=== PATIENT | male | born 1960 | race Caucasian/White ===

== ENCOUNTER 2016-09-19 07:59 | Emergency (ER) | payer SELFPAY ==
[~2016-09-19] VITALS: Ht 185.4 cm; Wt 127.0 kg
[~2016-09-19 07:59] MED LIST: DAYPRO600 M1 PO; HYDROCODONE BIT1 T11 PO; KEFLEX500 MG PO; LOTRISONE 0.05%1 CRE TP; MEDROL DOSEPAK4 MG PO; PREDNICOT20 MG PO; VICODIN 500 MG-1 TAB PO
[2016-09-19] MEDS ORDERED: ENALAPRIL20 MG PO (08:04)
[2016-09-19] MEDS ORDERED: NORVASC5 MG PO (08:04)
[2016-09-19] MEDS ORDERED: NEXIUM40 MG PO (08:05)
[2016-09-19 09:28] LABS: BASO # 0.1 10*3/uL (0.0-0.1); BASO % 0.8 % (0.0-1.0); EOS # 0.4 10*3/uL (0.0-0.4); HEMATOCRIT 44.5 % (42.0-52.0); IG # 0.1 10*3/uL (0.0-0.1); LYMPH # 1.4 10*3/uL (1.3-4.4); LYMPH % 15.6 % (27.0-41.0); MEAN CELL VOLUME 87.6 fl (80.0-94.0); MEAN CORPUSCULAR HGB 29.5 pg (27.0-31.0); MEAN CORPUSCULAR HGB CONC 33.7 g/dl (33.0-37.0); MEAN PLATELET VOLUME 9.4 fl (9.6-12.3); MONO # 0.9 10*3/uL (0.1-1.0); MONO % 10.1 % (3.0-9.0); NEUT % 67.8 % (47.0-73.0); PLATELET COUNT AUTOMATED 217 10*3/uL (130-400); RED BLOOD COUNT 5.08 10*6/uL (4.50-5.90); RED CELL DISTRI WIDTH 12.9 % (0-14.5); WHITE BLOOD COUNT 8.8 10*3/uL (4.8-10.8)
[2016-09-19 09:35] LABS: PROTHROMBIN TIME 10.4 SECONDS (9.0-12.4)
[2016-09-19 09:42] LABS: ALBUMIN 3.5 gm/dl (3.1-4.5); ALKALINE PHOSPHATASE 97 U/L (45-117); BILIRUBIN, TOTAL 0.3 mg/dl (0.2-1.0); BUN 13 mg/dl (7-24); C-REACTIVE PROTEIN 2.68 MG/DL (0-0.3); CARBON DIOXIDE 26 mmol/L (21-32); CHLORIDE 105 mmol/L (98-107); CKMB 1.5 ng/ml (0.5-3.6); CPK 116 U/L (39-308); EST GLOM FILT AFRICAN AMERICAN > 60 ml/min; GLUCOSE 113 mg/dL (65-99); POTASSIUM 4.1 mmol/L (3.5-5.1); SGOT/AST 15 IU/L (3-35); SGPT/ALT 21 U/L (12-78); SODIUM 139 mmol/L (136-145); TOTAL PROTEIN 8.2 gm/dL (6.4-8.2)
[2016-09-19 09:44] LABS: HEMOGLOBIN A1c 6.5 % (4.8-5.6)
[2016-09-19 09:46] LABS: TROPONIN I < 0.015 ng/ml (<0.045)
[2016-09-19] MEDS ORDERED: CIPRO500 MG PO (11:19)
== END 2016-09-19 11:41 | disposition home or self-care (01) ==
LOC: ED 07:59
PROVIDERS: Emergency Medicine
DX: S91.331A Puncture wound without foreign body, right foot, initial encounter (principal); L03.115 Cellulitis of right lower limb; G62.9 Polyneuropathy, unspecified; F17.200 Nicotine dependence, unspecified, uncomplicated; J45.909 Unspecified asthma, uncomplicated; J44.9 Chronic obstructive pulmonary disease, unspecified; I10 Essential (primary) hypertension; X58.XXXA Exposure to other specified factors, initial encounter; Y93.89 Activity, other specified; Y92.9 Unspecified place or not applicable; Y99.9 Unspecified external cause status

== ENCOUNTER → 2016-09-30 | Outpatient (CLI) | payer OTHER ==
[~2016-09-30] MED LIST changes: +CIPRO500 MG PO; +ENALAPRIL20 MG PO; +NEXIUM40 MG PO; +NORVASC5 MG PO
== END ==
LOC: WOUNDCARE 01:27
DX: S91.331D Puncture wound without foreign body, right foot, subsequent encounter (principal); G62.9 Polyneuropathy, unspecified; L84 Corns and callosities; J44.9 Chronic obstructive pulmonary disease, unspecified; F17.210 Nicotine dependence, cigarettes, uncomplicated

== ENCOUNTER → 2016-10-08 | Outpatient (CLI) | payer OTHER | END | disposition home or self-care (01) | LOC: US 04:14 | DX: I74.5 Embolism and thrombosis of iliac artery (principal); I10 Essential (primary) hypertension; S91.331D Puncture wound without foreign body, right foot, subsequent encounter; X58.XXXD Exposure to other specified factors, subsequent encounter ==

== ENCOUNTER → 2016-10-15 | Outpatient (CLI) | payer SELFPAY | LOC: WOUNDCARE 02:50 | DX: L97.511 Non-pressure chronic ulcer of other part of right foot limited to breakdown of skin (principal); G62.9 Polyneuropathy, unspecified; L84 Corns and callosities; I73.9 Peripheral vascular disease, unspecified; F17.210 Nicotine dependence, cigarettes, uncomplicated ==

== ENCOUNTER → 2016-10-22 | Outpatient (CLI) | payer SELFPAY | END | disposition home or self-care (01) | LOC: NM 03:08 → WOUNDCARE 03:08 | DX: L97.519 Non-pressure chronic ulcer of other part of right foot with unspecified severity (principal); S91.331A Puncture wound without foreign body, right foot, initial encounter; B96.89 Other specified bacterial agents as the cause of diseases classified elsewhere; X58.XXXA Exposure to other specified factors, initial encounter; Y93.89 Activity, other specified; Y92.89 Other specified places as the place of occurrence of the external cause; Y99.8 Other external cause status ==

== ENCOUNTER → 2016-11-05 | Outpatient (CLI) | payer SELFPAY ==
--- NOTE | ~2016-11-05 | PR ---
[place], [place] PROGRESS NOTE NAME: ALMA ROSA HOLDER SR [facility] #: [id number] UNIT #: [id number] ROOM: DOCTOR: IBIS CortesALEXIA BIRTHDATE: [birth year] DOS: 11/05/2016 SUBJECTIVE: The patient comes in for a wound care followup visit. CHIEF COMPLAINT: Followup of wound of the right foot. HISTORY OF PRESENT ILLNESS: This is a 55-year-old male with neuropathy, who has been coming to the Wound Clinic for 5 weeks now. He initially stepped on a screw and had not been aware of it and had been walking around with this foreign object in his boot for at least 4 days without realizing and he has been coming to the Wound Clinic for 5 weeks now with a fairly stalled wound. Last time he was here, a bone scan was ordered and was negative for osteomyelitis. He has completed a course of ampicillin for Strep agalactiae in the wound. He comes in today without any new complaints. We did give him a postop shoe with trying to offload the area, but he said it really caused problems with this knee, so he did not use it, he is back to his tennis shoes now. No fevers or chills. He has finished with his antibiotics. He does report that he developed a rash from the antibiotics on his legs. There is a very minimal drainage. No pain, fevers or chills. OBJECTIVE: VITAL SIGNS: Stable. Blood pressure 144/88, pulse 78, respirations 18, temperature 98.6. The wound is measuring 0.5 x 0.5 x 0.5, essentially the same as last week. There is a fairly thick callus around it. It looks clean. There is no purulence, tenderness or cellulitis. A debridement was done today. The tissue removed was devitalized, hyperkeratotic callus as well as subcutaneous tissue and there was moderate bleeding that was controlled with pressure. The post debridement measurements are 0.6 x 0.6 x 0.5. The patient tolerated the debridement well. Instruments used were forceps, scissors, a curette and a scalpel. Cetacaine spray was used for topical anesthesia. 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 He does have neuropathy and I would like to try the total contact cast to see if that would help offload the area more. There is no sign of infection and we will have the patient come on Thursday for a cast placement and then come back following Thursday for a cast change. So followup early next week for total contact cast. The patient thinks he will be able to tolerate it. I did explain that if it causes any knee problems, that he should let us know, we remove the cast right away. [place], [place] PROGRESS NOTE NAME: ALMA ROSA HOLDER SR UNIT #: [id number] ROOM: DOCTOR: ALEXIA BAUMANN M.D. BIRTHDATE: [birth year] ALEXIA BAUMANN MD CM:PNTRANS 9 3 ALEXIA BAUMANN M.D. 11/05/16923 interface
== END ==
LOC: WOUNDCARE 04:14
DX: L97.512 Non-pressure chronic ulcer of other part of right foot with fat layer exposed (principal); L84 Corns and callosities; G62.9 Polyneuropathy, unspecified

== ENCOUNTER → 2016-11-10 | Outpatient (CLI) | payer SELFPAY ==
--- NOTE | ~2016-11-10 | PR ---
[place], [place] PROGRESS NOTE NAME: ALMA ROSA HOLDER SR [facility] #: [id number] UNIT #: [id number] ROOM: DOCTOR: ALEXIA BAUMANN M.D. BIRTHDATE: [birth year] DOS: 11/10/2016 CHIEF COMPLAINT: Followup of a puncture wound of the right plantar foot. HISTORY OF PRESENT ILLNESS: A 55-year-old male with neuropathy who had a chronic ulcer that started out from a puncture wound. He has been in the Wound Clinic for 5 weeks now. The wound has stalled last visit and it was felt that the patient would benefit from a total contact cast to help alleviate pressure from the foot, so the patient comes in today for followup wound care visit and for application of a total contact cast. He has no specific complaints. There is minimal drainage. No fevers or chills or pain are noted. OBJECTIVE: Temperature is 98.2, pulse is 82, respirations are 18, blood pressure is 140/78. The wound is measuring slightly smaller at 0.4 x 0.4 x 0.3. It looks fairly clean. There was very minimal callus. No sign of infection. No debridement was done today. ASSESSMENT AND PLAN: We will continue with the collagen dressing and Bactroban and go ahead and apply the total contact cast. The total contact cast was applied in the usual fashion. The patient was observed to ambulate out of the office. He says it felt better to him than the postop shoe. He is to follow up in 2 days for a contact cast change. In the meantime, if he has any problems with the cast, pain or any unusual changes in the foot that he is aware of, he is to call us. If we are not here, to go to the ER to have the cast removed. ALEXIA BAUMANN MD CM:JOSELUIS [id number] ALEXIA BAUMANN M.D. 11/10/16 1044 interface
== END | disposition home or self-care (01) ==
LOC: WOUNDCARE 03:14
DX: L97.512 Non-pressure chronic ulcer of other part of right foot with fat layer exposed (principal); L84 Corns and callosities

== ENCOUNTER → 2016-11-12 | Outpatient (CLI) | payer SELFPAY ==
--- NOTE | ~2016-11-12 | PR ---
[place], [place] PROGRESS NOTE NAME: ALMA ROSA HOLDER SR [facility] #: [id number] UNIT #: [id number] ROOM: DOCTOR: ALEXIA BAUMANN M.D. BIRTHDATE: [birth year] DOS: 11/12/2016 WOUND CARE PROGRESS NOTE CHIEF COMPLAINT: Followup of right foot wound. SUBJECTIVE: This is a 55-year-old male who sustained a puncture wound to the right foot after septic on a nail. He has been coming to the Wound Clinic for 6 weeks. It was felt due to the continued slow healing that the patient would benefit from offloading and a total contact cast was applied 2 days ago, so the patient comes in for his followup and to check on the cast. Today, the cast was removed. He said he did well with a cast and it did not bother him. He did have a little bit of itching on the leg where he had a previous rash that was healing and that bothers him a bit, but other than that, he is doing quite well and did not have any problems with the cast. The cast was removed and there were no areas of rubbing that were noted. OBJECTIVE: VITAL SIGNS: His vitals are stable. Temperature is 98, pulse 80, respirations 18, blood pressure is 144/76. The wound is measuring the same with no sign of infection. The cast was put back on. We did put some hydrocortisone cream on areas that were causing pruritus, but there was no evidence of a severe rash noted. The total contact cast was applied in the standard fashion and he is to keep it on for a week unless he has a problem with it and needs to come sooner. The patient was discharged in a stable condition. ALEXIA BAUMANN MD CM:JOSELUIS [phone] ALEXIA BAUMANN M.D. 11/12/166 interface
== END ==
LOC: WOUNDCARE 02:58
DX: L97.512 Non-pressure chronic ulcer of other part of right foot with fat layer exposed (principal)

== ENCOUNTER → 2016-11-19 | Outpatient (CLI) | payer SELFPAY ==
--- NOTE | ~2016-11-19 | PR ---
[place], [place] PROGRESS NOTE NAME: ALMA ROSA HOLDER SR [facility] #: [id number] UNIT #: [id number] ROOM: DOCTOR: ALEXIA BAUMANN M.D. BIRTHDATE: [birth year] DOS: 11/19/2016 CHIEF COMPLAINT: Followup of ulcer of the right foot. HISTORY OF PRESENT ILLNESS: This is a 55-year-old male with a history of neuropathy, who suffered a puncture wound to the right foot after he had been walking on a screw without knowing it due to neuropathy. The wound was quite deep when he came in. He has been following up in the Wound Clinic for 7 weeks now. We had started him on a total contact cast. This is the first entire week that he was wearing it. He really had no issues with the cast. Occasionally he feels sweaty, but otherwise he does pretty well with it and has not had any problems with that. He is asking whether he can go back to work. 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 No other specific complaints. PHYSICAL EXAMINATION: VITAL SIGNS: Temperature 98, pulse 80, respirations 18, blood pressure is 150/80. SKIN: The wound is measuring much less deep at 0.4 x 0.4 x 0.1. There is some callus around that, but otherwise it definitely has gotten much smaller. A selective debridement was done just to remove the callus. Cetacaine spray was used for topical anesthesia. A #15 blade was utilized. Post debridement measurements are unchanged. There was no bleeding. The patient tolerated the debridement well. ASSESSMENT AND PLAN: Puncture wound to the right foot, which is now definitely healing quite nicely with offloading. I did explain to the patient that I would recommend to do the cast one more week. I am hoping it will be healed by then, as I think if he gets back on his feet for an extended period of time, this wound may reopen and get deeper once again. The patient was agreeable to trying the cast for one more week. The total contact cast was reapplied per protocol. The patient will follow up in the Wound Clinic in one week. ALEXIA BAUMANN MD CM:JOSELUIS Evans: 11/19/16 [id number] [id number] ALEXIA BAUMANN M.D. 11/19/16 1450 interface
== END | disposition home or self-care (01) ==
LOC: WOUNDCARE 03:10
DX: L97.512 Non-pressure chronic ulcer of other part of right foot with fat layer exposed (principal); G62.9 Polyneuropathy, unspecified; L84 Corns and callosities

== ENCOUNTER → 2016-11-26 | Outpatient (CLI) | payer OTHER ==
--- NOTE | ~2016-11-26 | PR ---
[place], [place] PROGRESS NOTE NAME: ALMA ROSA HOLDER SR [facility] #: [id number] UNIT #: [id number] ROOM: DOCTOR: ALEXIA BAUMANN M.D. BIRTHDATE: [birth year] DOS: 11/26/2016 SUBJECTIVE: The patient comes in for a followup wound care visit. CHIEF COMPLAINT: Ulcer of the right foot. HISTORY OF PRESENT ILLNESS: This is a 56-year-old male with a history of neuropathy who suffered a puncture wound to his right foot that left him with a very deep ulcer, which has been very slow to heal. We had noticed a big improvement last week with a total contact cast and the total contact cast was reapplied last week and he comes in today for followup wound care visit. Total contact cast was removed and the wound appears to be healed underneath it. There were no other complaints with the cast. No fevers or chills. OBJECTIVE: Temperature is 97.7, pulse is 78, respirations 18, blood pressure is 140/90. The wound is healed at this time. It looks good without any sign of inflammation. ASSESSMENT AND PLAN: Healed puncture wound of the right foot. The patient does not have to have any dressing, at this point it is healed completely. I did advise to keep a close eye on the area to make sure he examines his feet every day and his shoes also. I did apply a horseshoe shaped metatarsal pad around it just to help offload the area to keep it protected. The patient will be reevaluated next week one more time just to make sure that the wound stays healed as it did take quite a long time for us to heal this wound. Otherwise, the wound appears healed and looks good and the patient may return back to work. ALEXIA BAUMANN MD CM:PNTRANS 5 ALEXIA BAUMANN M.D. 11/26/1656 interface
== END | disposition home or self-care (01) ==
LOC: WOUNDCARE 03:03
DX: L97.511 Non-pressure chronic ulcer of other part of right foot limited to breakdown of skin (principal)

== ENCOUNTER 2017-07-19 09:56 | Emergency (ER) | payer SELFPAY ==
[~2017-07-19] VITALS: Ht 185.4 cm; Wt 172.4 kg
[2017-07-19] MEDS ORDERED: FLONASE ALLERG9.9 ML NAS (10:15)
[2017-07-19] MEDS ORDERED: CLARITIN-D 24 H1 TAB PO (10:15)
== END 2017-07-19 10:27 | disposition home or self-care (01) ==
LOC: ED 09:56
DX: H10.9 Unspecified conjunctivitis (principal); Z79.899 Other long term (current) drug therapy; J30.2 Other seasonal allergic rhinitis

== ENCOUNTER → 2017-10-19 | Outpatient (CLI) | payer SELFPAY ==
[~2017-10-19] MED LIST changes: +CLARITIN-D 24 H1 TAB PO; +FLONASE ALLERG9.9 ML NAS
== END | disposition home or self-care (01) ==
LOC: RAD 08:13
DX: S83.101A Unspecified subluxation of right knee, initial encounter (principal); M17.12 Unilateral primary osteoarthritis, left knee; R60.0 Localized edema; X58.XXXA Exposure to other specified factors, initial encounter; Y93.89 Activity, other specified; Y92.89 Other specified places as the place of occurrence of the external cause; Y99.8 Other external cause status

== ENCOUNTER 2019-01-14 17:58 | Emergency (ER) | payer BC ==
[~2019-01-14] VITALS: Ht 185.4 cm; Wt 127.0 kg
--- NOTE | ~2019-01-14 | EKG ---
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
[2019-01-14 18:40] LABS: BASO # 0.1 10*3/uL (0.0-0.1); BASO % 0.5 % (0.0-1.0); EOS # 0.3 10*3/uL (0.0-0.4); EOS % 3.1 % (1.0-4.0); HEMATOCRIT 44.1 % (42.0-52.0); HEMOGLOBIN 14.9 g/dl (14.0-18.0); LYMPH # 2.1 10*3/uL (1.3-4.4); LYMPH % 19.3 % (27.0-41.0); MEAN CELL VOLUME 88.2 fl (80.0-94.0); MEAN CORPUSCULAR HGB 29.8 pg (27.0-31.0); MEAN CORPUSCULAR HGB CONC 33.8 g/dl (33.0-37.0); MEAN PLATELET VOLUME 9.4 fl (9.6-12.3); MONO # 0.8 10*3/uL (0.1-1.0); MONO % 7.5 % (3.0-9.0); NEUT # 7.5 10*3/uL (2.3-7.9); PLATELET COUNT AUTOMATED 273 10*3/uL (130-400); RED CELL DISTRI WIDTH 12.5 % (0-14.5); WHITE BLOOD COUNT 10.8 10*3/uL (4.8-10.8)
[2019-01-14 18:53] LABS: ACT PARTIAL THROMBO TIME 25.4 SECONDS (20.0-32.1); INTERNATIONAL NORM RATIO 0.9 (2.0-3.5)
[2019-01-14 18:55] LABS: ALBUMIN 3.3 gm/dl (3.1-4.5); ALKALINE PHOSPHATASE 114 U/L (45-117); BUN 24 mg/dl (7-24); CHLORIDE 101 mmol/L (98-107); LIPASE 172 U/L (73-393); POTASSIUM 4.2 mmol/L (3.5-5.1); SGOT/AST 9 IU/L (3-35); SGPT/ALT 34 U/L (12-78); SODIUM 134 mmol/L (136-145); TOTAL PROTEIN 8.3 gm/dL (6.4-8.2)
[2019-01-14 18:56] LABS: TROPONIN I < 0.015 ng/ml (<0.045)
== END 2019-01-14 23:30 | disposition short-term general hospital (02) ==
LOC: ED 17:58
PROVIDERS: Emergency Medicine
DX: I65.21 Occlusion and stenosis of right carotid artery (principal); G81.94 Hemiplegia, unspecified affecting left nondominant side; G62.9 Polyneuropathy, unspecified; Z79.899 Other long term (current) drug therapy; Z79.2 Long term (current) use of antibiotics

== ENCOUNTER → 2019-10-20 | Outpatient (CLI) | payer BC | END | disposition home or self-care (01) | LOC: US 15:52 | DX: R60.0 Localized edema (principal); M79.604 Pain in right leg; M79.605 Pain in left leg ==

== ENCOUNTER → 2020-10-15 | Outpatient (CLI) | payer BC ==
[2020-10-15 09:09] LABS: BUN 27 mg/dl (7-24); CHLORIDE 101 mmol/L (98-107); CREATININE 1.32 mg/dL (0.70-1.30); POTASSIUM 4.3 mmol/L (3.5-5.1); SODIUM 133 mmol/L (136-145)
== END | disposition home or self-care (01) ==
LOC: LAB 07:58
PROVIDERS: ATTEND Internal Medicine
DX: Z13.0 Encounter for screening for diseases of the blood and blood-forming organs and certain disorders involving the immune mechanism (principal); Z13.1 Encounter for screening for diabetes mellitus; Z13.21 Encounter for screening for nutritional disorder; Z13.220 Encounter for screening for lipoid disorders; I10 Essential (primary) hypertension; E03.9 Hypothyroidism, unspecified; E55.9 Vitamin D deficiency, unspecified; R53.81 Other malaise; R79.89 Other specified abnormal findings of blood chemistry; R74.8 Abnormal levels of other serum enzymes; R79.82 Elevated C-reactive protein (CRP); R70.0 Elevated erythrocyte sedimentation rate; D51.9 Vitamin B12 deficiency anemia, unspecified; D52.9 Folate deficiency anemia, unspecified

== ENCOUNTER 2022-03-11 09:36 | Emergency (ER) | payer MEDICARE ==
[~2022-03-11] VITALS: Ht 185.4 cm; Wt 128.8 kg
[2022-03-11] MEDS ORDERED: ASPIRIN ADULT L81 M2 PO (09:47)
[2022-03-11] MEDS ORDERED: ROSUVASTATIN CA20 MG PO (09:47)
[2022-03-11] MEDS ORDERED: ATORVASTATIN CA80 M1 PO (09:47)
[2022-03-11] MEDS ORDERED: ZESTORETIC 20-1 EACH PO (09:47)
[2022-03-11] MEDS ORDERED: 'CLONIDINE0.1 MG PO (09:47)
[2022-03-11] MEDS ORDERED: METFORMIN850 MG PO (09:48)
[2022-03-11] MEDS ORDERED: INSULIN GL100 UNIT/5 SC (09:48)
[2022-03-11] MEDS ORDERED: BUMETANIDE1 MG PO (09:49)
[2022-03-11 14:03] LABS: BASO # 0.1 10*3/uL (0.0-0.1); BASO % 0.7 % (0.0-1.0); EOS # 0.2 10*3/uL (0.0-0.4); LYMPH # 0.9 10*3/uL (1.3-4.4); MEAN CELL VOLUME 86.9 fl (80.0-94.0); MEAN CORPUSCULAR HGB 29.4 pg (27.0-31.0); MEAN CORPUSCULAR HGB CONC 33.8 g/dl (33.0-37.0); MEAN PLATELET VOLUME 9.1 fl (9.6-12.3); MONO # 0.5 10*3/uL (0.1-1.0); MONO % 5.4 % (3.0-9.0); NEUT # 6.7 10*3/uL (2.3-7.9); NEUT % 80.4 % (47.0-73.0); PLATELET COUNT AUTOMATED 179 10*3/uL (130-400); RED BLOOD COUNT 5.41 10*6/uL (4.50-5.90); WHITE BLOOD COUNT 8.4 10*3/uL (4.8-10.8)
[2022-03-11 14:45] LABS: ALKALINE PHOSPHATASE 78 U/L (46-116); BUN 14 mg/dl (9-23); CHLORIDE 97 mmol/L (98-107); CREATININE 1.05 mg/dL (0.70-1.30); POTASSIUM 3.6 mmol/L (3.4-5.1); SGPT/ALT 11 U/L (10-49); SODIUM 134 mmol/L (136-145)
[2022-03-11 14:46] LABS: TOTAL PROTEIN 7.9 gm/dL (6.0-8.0)
[2022-03-11] MEDS ORDERED: VIBRAMYCIN100 MG PO (16:25)
== END 2022-03-11 17:52 | disposition home or self-care (01) ==
LOC: ED 09:36
PROVIDERS: Physician Assistant
DX: E11.621 Type 2 diabetes mellitus with foot ulcer (principal); L97.429 Non-pressure chronic ulcer of left heel and midfoot with unspecified severity; Z79.899 Other long term (current) drug therapy; Z79.82 Long term (current) use of aspirin

== ENCOUNTER → 2022-03-18 | Outpatient (CLI) | payer MEDICARE ==
[~2022-03-18] MED LIST changes: +'CLONIDINE0.1 MG PO; +ASPIRIN ADULT L81 M2 PO; +ATORVASTATIN CA80 M1 PO; +BUMETANIDE1 MG PO; +INSULIN GL100 UNIT/5 SC; +METFORMIN850 MG PO; +ROSUVASTATIN CA20 MG PO; +VIBRAMYCIN100 MG PO; +ZESTORETIC 20-1 EACH PO
== END | disposition home or self-care (01) ==
LOC: WOUNDCARE 03:07
PROVIDERS: ATTEND Nurse Practitioner Family
DX: E11.621 Type 2 diabetes mellitus with foot ulcer (principal); L97.522 Non-pressure chronic ulcer of other part of left foot with fat layer exposed; L84 Corns and callosities; E78.5 Hyperlipidemia, unspecified; E11.40 Type 2 diabetes mellitus with diabetic neuropathy, unspecified; I10 Essential (primary) hypertension; K21.9 Gastro-esophageal reflux disease without esophagitis; Z79.4 Long term (current) use of insulin; Z87.891 Personal history of nicotine dependence

== ENCOUNTER → 2022-03-25 | Outpatient (CLI) | payer MEDICARE | END | disposition home or self-care (01) | LOC: WOUNDCARE 03:00 | PROVIDERS: ATTEND Nurse Practitioner Family | DX: E11.621 Type 2 diabetes mellitus with foot ulcer (principal); L97.521 Non-pressure chronic ulcer of other part of left foot limited to breakdown of skin; L84 Corns and callosities; E11.40 Type 2 diabetes mellitus with diabetic neuropathy, unspecified; E78.5 Hyperlipidemia, unspecified; I10 Essential (primary) hypertension; K21.9 Gastro-esophageal reflux disease without esophagitis; Z71.6 Tobacco abuse counseling; Z87.891 Personal history of nicotine dependence ==

== ENCOUNTER → 2022-04-15 | Outpatient (CLI) | payer MEDICARE ==
[~2022-04-15] MED LIST changes: +ELIQUIS5 M1 PO; +METOPROLOL SUCC25 M2 PO
== END | disposition home or self-care (01) ==
LOC: WOUNDCARE 03:17
PROVIDERS: ATTEND Nurse Practitioner Family
DX: E11.621 Type 2 diabetes mellitus with foot ulcer (principal); L97.522 Non-pressure chronic ulcer of other part of left foot with fat layer exposed; L84 Corns and callosities; E11.40 Type 2 diabetes mellitus with diabetic neuropathy, unspecified; E78.5 Hyperlipidemia, unspecified; I10 Essential (primary) hypertension; K21.9 Gastro-esophageal reflux disease without esophagitis; Z71.6 Tobacco abuse counseling; Z87.891 Personal history of nicotine dependence

== ENCOUNTER → 2022-05-14 | Outpatient (CLI) | payer MEDICARE ==
[~2022-05-14] MED LIST changes: +CEPHALEXIN500 M1 PO; +VITAMIN D350 MC2 PO
== END | disposition home or self-care (01) ==
LOC: RAD 11:07
PROVIDERS: ATTEND Internal Medicine
DX: M17.0 Bilateral primary osteoarthritis of knee (principal); M25.762 Osteophyte, left knee; M25.761 Osteophyte, right knee

== ENCOUNTER → 2022-11-24 | Outpatient (CLI) | payer MEDICARE ==
[~2022-11-24] MED LIST changes: +CEFDINIR300 MG PO; +CLEOCIN HCL300 MG PO; +PROVENTIL HFA6.7 GM INH
[2022-11-24 09:01] LABS: ALKALINE PHOSPHATASE 67 U/L (46-116); BUN 10 mg/dl (9-23); CHLORIDE 106 mmol/L (98-107); CHOLESTEROL 110 mg/dL (<200); LDL CHOLESTEROL 58 mg/dL (9-159); POTASSIUM 4.9 mmol/L (3.4-5.1); SGPT/ALT 12 U/L (10-49); TRIGLYCERIDES 86 mg/dl (<150)
== END | disposition home or self-care (01) ==
LOC: LAB 08:12
PROVIDERS: ATTEND Internal Medicine Cardiovascular Disease
DX: E11.52 Type 2 diabetes mellitus with diabetic peripheral angiopathy with gangrene (principal); I65.29 Occlusion and stenosis of unspecified carotid artery; I10 Essential (primary) hypertension; E78.2 Mixed hyperlipidemia

== ENCOUNTER → 2022-11-28 | Outpatient (CLI) | payer MEDICARE | END | disposition home or self-care (01) | LOC: CT 01:50 | PROVIDERS: ATTEND Internal Medicine | DX: J43.2 Centrilobular emphysema (principal); R91.1 Solitary pulmonary nodule; R93.1 Abnormal findings on diagnostic imaging of heart and coronary circulation; I25.10 Atherosclerotic heart disease of native coronary artery without angina pectoris; F17.210 Nicotine dependence, cigarettes, uncomplicated ==

== ENCOUNTER 2023-07-14 15:48 | Emergency (ER) | payer MEDICARE ==
[~2023-07-14] VITALS: Ht 185.4 cm; Wt 131.5 kg
[~2023-07-14 15:48] MED LIST changes: +ATORVASTATIN CA20 M1 PO; +DIGOXIN125 MCG PO; +DILTIAZEM HCL120 M2 PO; +INSULIN LI100 UNIT/2 SQ; +LISINOPRIL5 MG PO; +METFORMIN HYD1000 MG PO; -METFORMIN850 MG PO; +METOPROLOL SUCC50 M1 PO; +VIBRA-TAB100 MG PO
[2023-07-14] MEDS ORDERED: SODIUM CHLORIDE 0.9% 1,000 ML IV ONE (16:50)
[2023-07-14 17:13] LABS: BASO # 0.1 10*3/uL (0.0-0.1); EOS # 0.4 10*3/uL (0.0-0.4); EOS % 4.1 % (1.0-4.0); HEMATOCRIT 48.8 % (42.0-52.0); LYMPH # 1.8 10*3/uL (1.3-4.4); LYMPH % 18.8 % (27.0-41.0); MEAN CELL VOLUME 87.6 fl (80.0-94.0); MEAN CORPUSCULAR HGB 28.4 pg (27.0-31.0); MEAN CORPUSCULAR HGB CONC 32.4 g/dl (33.0-37.0); MEAN PLATELET VOLUME 9.3 fl (9.6-12.3); MONO # 0.8 10*3/uL (0.1-1.0); MONO % 7.9 % (3.0-9.0); NEUT # 6.6 10*3/uL (2.3-7.9); NEUT % 67.7 % (47.0-73.0); PLATELET COUNT AUTOMATED 226 10*3/uL (130-400); RED BLOOD COUNT 5.57 10*6/uL (4.50-5.90); RED CELL DISTRI WIDTH 12.9 % (0-14.5); WHITE BLOOD COUNT 9.8 10*3/uL (4.8-10.8)
[2023-07-14 17:28] LABS: BUN 12 mg/dl (9-23); CHLORIDE 106 mmol/L (98-107); POTASSIUM 4.2 mmol/L (3.4-5.1)
[2023-07-14] MEDS ORDERED: Ceftriaxone Sodium 1 GM/10 ML SYR IV ONE (18:20)
== END 2023-07-14 20:23 | disposition home or self-care (01) ==
LOC: ED 15:48
PROVIDERS: Nurse Practitioner Family
DX: L03.116 Cellulitis of left lower limb (principal); L03.115 Cellulitis of right lower limb; E11.9 Type 2 diabetes mellitus without complications; I48.91 Unspecified atrial fibrillation; J44.9 Chronic obstructive pulmonary disease, unspecified; I11.0 Hypertensive heart disease with heart failure; I50.9 Heart failure, unspecified; Z98.890 Other specified postprocedural states; F17.200 Nicotine dependence, unspecified, uncomplicated

== ENCOUNTER → 2024-05-31 | Outpatient (CLI) | payer MEDICARE ==
[~2024-05-31] MED LIST changes: +AMOX-CLAV 875-1 EACH PO; +DIGOXIN250 MCG PO; +DILTIAZEM HCL120 MG PO; +DOXYCYCLINE MO100 MG PO; -INSULIN GL100 UNIT/5 SC; +LANTUS100 UNIT/1 SC; +MUCINEX1200 M1 PO; +NEURONTIN300 MG PO; +PREDNISONE10 MG PO
== END | disposition home or self-care (01) ==
LOC: WOUNDCARE 01:43
PROVIDERS: ATTEND Nurse Practitioner Family
DX: E11.621 Type 2 diabetes mellitus with foot ulcer (principal); L97.511 Non-pressure chronic ulcer of other part of right foot limited to breakdown of skin; L97.521 Non-pressure chronic ulcer of other part of left foot limited to breakdown of skin; L84 Corns and callosities; S80.812A Abrasion, left lower leg, initial encounter; L60.9 Nail disorder, unspecified; B35.3 Tinea pedis; I87.2 Venous insufficiency (chronic) (peripheral); I48.91 Unspecified atrial fibrillation; E11.40 Type 2 diabetes mellitus with diabetic neuropathy, unspecified; J44.9 Chronic obstructive pulmonary disease, unspecified; K21.9 Gastro-esophageal reflux disease without esophagitis; E78.5 Hyperlipidemia, unspecified; I10 Essential (primary) hypertension; Z86.73 Personal history of transient ischemic attack (TIA), and cerebral infarction without residual deficits; Z98.890 Other specified postprocedural states; Z87.891 Personal history of nicotine dependence; Z79.84 Long term (current) use of oral hypoglycemic drugs; Z79.82 Long term (current) use of aspirin; Z79.899 Other long term (current) drug therapy; X58.XXXA Exposure to other specified factors, initial encounter; Y93.89 Activity, other specified; Y92.89 Other specified places as the place of occurrence of the external cause; Y99.8 Other external cause status

== ENCOUNTER → 2024-06-08 | Outpatient (CLI) | payer MEDICARE | END | disposition home or self-care (01) | LOC: WOUNDCARE 04:06 | PROVIDERS: ATTEND Nurse Practitioner Family | DX: E11.621 Type 2 diabetes mellitus with foot ulcer (principal); L97.511 Non-pressure chronic ulcer of other part of right foot limited to breakdown of skin; L97.521 Non-pressure chronic ulcer of other part of left foot limited to breakdown of skin; L84 Corns and callosities; S80.812D Abrasion, left lower leg, subsequent encounter; L60.9 Nail disorder, unspecified; B35.3 Tinea pedis; I87.2 Venous insufficiency (chronic) (peripheral); Z86.73 Personal history of transient ischemic attack (TIA), and cerebral infarction without residual deficits; I48.91 Unspecified atrial fibrillation; E11.40 Type 2 diabetes mellitus with diabetic neuropathy, unspecified; J44.9 Chronic obstructive pulmonary disease, unspecified; K21.9 Gastro-esophageal reflux disease without esophagitis; E78.5 Hyperlipidemia, unspecified; I10 Essential (primary) hypertension; Z98.890 Other specified postprocedural states; Z87.891 Personal history of nicotine dependence; Z79.84 Long term (current) use of oral hypoglycemic drugs; Z79.82 Long term (current) use of aspirin; Z79.899 Other long term (current) drug therapy; X58.XXXD Exposure to other specified factors, subsequent encounter ==

== ENCOUNTER 2024-07-29 15:40 | Emergency (ER) | payer MEDICARE ==
[2024-07-29] MEDS ORDERED: MIDAZOLAM HCL IN 0.9 % NACL/PF 50 ML IV ONE (16:00)
[2024-07-29] MEDS ORDERED: Midazolam Hydrochloride 5 MG/5 ML VIAL IV ONE ×2 (16:10)
[2024-07-29] MEDS ORDERED: DOBUTamine 250 ML IV ONE (16:15)
[2024-07-29 16:18] LABS: BASO # 0.1 10*3/uL (0.0-0.1); BASO % 0.6 % (0.0-1.0); EOS # 0.3 10*3/uL (0.0-0.4); EOS % 2.7 % (1.0-4.0); HEMATOCRIT 43.9 % (42.0-52.0); MEAN CELL VOLUME 88.7 fl (80.0-94.0); MEAN CORPUSCULAR HGB 29.5 pg (27.0-31.0); MEAN CORPUSCULAR HGB CONC 33.3 g/dl (33.0-37.0); MEAN PLATELET VOLUME 9.4 fl (9.6-12.3); MONO # 1.2 10*3/uL (0.1-1.0); MONO % 10.2 % (3.0-9.0); NEUT # 8.5 10*3/uL (2.3-7.9); PLATELET COUNT AUTOMATED 154 10*3/uL (130-400); RED BLOOD COUNT 4.95 10*6/uL (4.50-5.90); RED CELL DISTRI WIDTH 13.2 % (0-14.5); WHITE BLOOD COUNT 11.6 10*3/uL (4.8-10.8)
[2024-07-29 16:39] LABS: ALKALINE PHOSPHATASE 72 U/L (46-116); BUN 15 mg/dl (9-23); CHLORIDE 105 mmol/L (98-107); POTASSIUM 4.1 mmol/L (3.4-5.1); SGPT/ALT 24 U/L (5-49); TOTAL PROTEIN 7.5 gm/dL (6.0-8.0)
[2024-07-29] MEDS ORDERED: ETOMIDATE 20 MG/10 ML VIAL IV ONE (21:45)
== END 2024-07-29 19:48 | disposition short-term general hospital (02) ==
LOC: ED 15:40
PROVIDERS: Emergency Medicine
DX: I97.190 Other postprocedural cardiac functional disturbances following cardiac surgery (principal); R42 Dizziness and giddiness; R25.9 Unspecified abnormal involuntary movements; I48.91 Unspecified atrial fibrillation; F17.210 Nicotine dependence, cigarettes, uncomplicated; Z79.899 Other long term (current) drug therapy; Z79.4 Long term (current) use of insulin; Z98.890 Other specified postprocedural states; Y83.8 Other surgical procedures as the cause of abnormal reaction of the patient, or of later complication, without mention of misadventure at the time of the procedure

== ENCOUNTER → 2024-12-28 | Emergency (ER) | payer MEDICARE ==
[~2024-12-28] VITALS: Wt 113.4 kg
[~2024-12-28] MED LIST changes: +AMIODARONE HYD200 MG PO; +ARTHRITIS PAIN150 G1 T; +ASPIRIN81 M1 PO; +Albuterol Sulf/Ipratropium 3 ML VIAL NEB ONE; +BROVANA15 MCG/2 M INH; +DRIZALMA SPRINK30 MG PO; +ESOMEPRAZOLE MA40 M1 PO; +HUMALOG100 UNIT/1 SQ; +INSULIN GL300 UNIT/1 SQ; +Ipratropium Brom3 ML INH; +KETOROLAC10 MG PO; +LIDOCAINE15 G1 T; +LIPITOR40 MG PO; +LOPRESSOR25 MG PO; +Ondansetron4 MG PO; +TERAZOSIN HCL1 M1 PO; +TRAMADOL HCL50 MG PO; +VITAMIN D325 MCG PO; +YUPELRI175 MCG/3 INH; +ZESTRIL10 MG PO
[2024-12-28 07:15] LABS: BASO # 0.1 10*3/uL (0.0-0.1); BASO % 1.2 % (0.0-1.0); EOS # 0.4 10*3/uL (0.0-0.4); EOS % 5.5 % (1.0-4.0); MEAN CELL VOLUME 88.3 fl (80.0-94.0); MEAN CORPUSCULAR HGB 29.1 pg (27.0-31.0); MEAN PLATELET VOLUME 9.4 fl (9.6-12.3); MONO # 0.5 10*3/uL (0.1-1.0); MONO % 6.8 % (3.0-9.0); NEUT # 5.3 10*3/uL (2.3-7.9); NEUT % 69.8 % (47.0-73.0); NUCLEATED RED BLOOD CELL 0.0 % (0.0-0.0); NUCLEATED RED BLOOD CELL 0.0 10*3/uL (0.0-0.0); PLATELET COUNT AUTOMATED 207 10*3/uL (130-400); RED CELL DISTRI WIDTH 14.6 % (0-14.5)
[2024-12-28 07:42] LABS: BUN 17 mg/dl (9-23)
== END ==
LOC: ED 06:31
PROVIDERS: Emergency Medicine
DX: R11.2 Nausea with vomiting, unspecified (principal); R06.02 Shortness of breath; I48.91 Unspecified atrial fibrillation; J44.9 Chronic obstructive pulmonary disease, unspecified; E78.5 Hyperlipidemia, unspecified; I10 Essential (primary) hypertension; E11.51 Type 2 diabetes mellitus with diabetic peripheral angiopathy without gangrene; E11.40 Type 2 diabetes mellitus with diabetic neuropathy, unspecified; F17.210 Nicotine dependence, cigarettes, uncomplicated; Z79.899 Other long term (current) drug therapy; Z79.4 Long term (current) use of insulin; Z86.73 Personal history of transient ischemic attack (TIA), and cerebral infarction without residual deficits; Z79.84 Long term (current) use of oral hypoglycemic drugs; Z79.82 Long term (current) use of aspirin; Z98.890 Other specified postprocedural states; Z95.0 Presence of cardiac pacemaker

== ENCOUNTER 2025-01-31 17:03 | Emergency (ER) | payer MEDICARE ==
[~2025-01-31] VITALS: Ht 187.9 cm; Wt 117.5 kg
[~2025-01-31 17:03] MED LIST changes: -Albuterol Sulf/Ipratropium 3 ML VIAL NEB ONE
[2025-01-31 17:25] LABS: BASO # 0.1 10*3/uL (0.0-0.1); BASO % 1.0 % (0.0-1.0); EOS # 0.4 10*3/uL (0.0-0.4); EOS % 3.3 % (1.0-4.0); MEAN CELL VOLUME 91.4 fl (80.0-94.0); MEAN CORPUSCULAR HGB 30.0 pg (27.0-31.0); MEAN PLATELET VOLUME 9.4 fl (9.6-12.3); MONO # 0.9 10*3/uL (0.1-1.0); MONO % 7.9 % (3.0-9.0); NEUT # 7.6 10*3/uL (2.3-7.9); NEUT % 69.5 % (47.0-73.0); NUCLEATED RED BLOOD CELL 0.0 % (0.0-0.0); NUCLEATED RED BLOOD CELL 0.0 10*3/uL (0.0-0.0); PLATELET COUNT AUTOMATED 175 10*3/uL (130-400); RED CELL DISTRI WIDTH 14.4 % (0-14.5)
[2025-01-31 17:45] LABS: BUN 15 mg/dl (9-23)
[2025-01-31 18:18] LABS: BILIRUBIN Negative (Negative); BLOOD 1+ (Negative); CLARITY Clear (Clear); COLOR Yellow (Yellow); KETONE Negative (Negative); LEUKO ESTERASE Negative (Negative); NITRITE Negative (Negative); PH 5.5 (4.5-8.0); SPECIFIC GRAVITY 1.025 (1.001-1.030); UROBILINOGEN 0.2 E.U./dl (0.0-1.0)
[2025-01-31 18:31] LABS: BACTERIA TRACE; MUCOUS 1+; WBC 0-2 wbc/hpf (0-5)
[2025-01-31] MEDS ORDERED: SEPTDS PO ×2 (18:52→19:14)
== END 2025-01-31 20:30 | disposition home or self-care (01) ==
LOC: ED 17:03
PROVIDERS: Emergency Medicine
DX: N39.0 Urinary tract infection, site not specified (principal); J44.9 Chronic obstructive pulmonary disease, unspecified; I11.0 Hypertensive heart disease with heart failure; I50.9 Heart failure, unspecified; I48.91 Unspecified atrial fibrillation; E11.40 Type 2 diabetes mellitus with diabetic neuropathy, unspecified; F17.210 Nicotine dependence, cigarettes, uncomplicated; Z98.890 Other specified postprocedural states